=== PATIENT | female | born 1960 ===

== ENCOUNTER → 2023-12-29 09:07 | Outpatient (BNVA) | payer OTHER, SELFPAY | PROVIDERS: PCP Family Medicine; Referring Provider Family Medicine; Visit Provider Student in an Organized Health Care Education/Training Program | DX: J44.9 Chronic obstructive pulmonary disease, unspecified (principal); J96.91 Respiratory failure, unspecified with hypoxia; J96.92 Respiratory failure, unspecified with hypercapnia; G47.33 Obstructive sleep apnea (adult) (pediatric); Z87.891 Personal history of nicotine dependence | CPT/HCPCS: 99205 ==

== ENCOUNTER → 2024-03-21 00:45 | Outpatient (CLI) | payer OTHER, SELFPAY ==
--- NOTE | 2024-03-21 | DI.NM_ITS ---
APPROVED REPORT Exam: Pharmacologic Patient Location: Out-Patient Room/Bed: Stress Nurse: Kimberly Tripp RN Ordering Provider:BELGICA CHE, Contact Number: [phone] BMI: 32.91 Baseline Rhythm: Sinus Rhythm Indications: Chest pain, other forms of dyspnea, Medical History Medical History: Edema, COPD, hypothyroid, THAO, anemia, mixed anxiety and depression, prediabetes Cardiac Medications: Albuterol sulfate, aspirin, atorvastatin, prednisone, sertraline, levothyroxine trelegy Allergies: Dulera, fluticasone, lactose Cardiac Risk Factors: Prediabetes, asthma, HLD, COPD, former smoker Previous Cardiac Procedures: None Pretest Chest Pain Characteristics: None Exercise History: Indeterminate Physical Disabilities: None Lung Sounds: Rhonchi left mid to base Heart Sounds: Regular Stress Test Details Test: Pharmacologic stress was paired with low level exercise. Reason for pharmacologic stress test: physical limitation. Nuclear Acquisition: Rest Tc-99m/Stress Tc-99m 1 day Rest Isotope: Tc-99m Sestamibi. Dose: 10.0 Date: 03/21/2024 Injection Time: 0830 Stress Isotope: Tc-99m Sestamibi. Dose: 30.0 Date: 03/21/2024 Injection Time: 1115 HR Resting HR Supine: 81 bpm Max Heart Rate (APMHR): 159.473787 bpm Resting HR Standin bpm Target HR (85% APMHR): 135.068908 bpm Max HR Achieved: 111 bpm % of APMHR: 69.81 Recovery HR: 92 bpm BP Resting BP Supine: 138/72 mmHg Resting BP Standin/82 mmHg Max BP: 138/72 mmHg Recovery BP: 126/76 mmHg ECG Resting ECG: Sinus Rhythm Ectopy: None Stress ECG: Sinus Tachycardia ST Change: Nondiagnostic low heart rate Arrhythmia: None Recovery ECG: Sinus Rhythm Recovery ST Change: Nondiagnostic low heart rate Recovery Arrhythmia: None Clinical Stress Symptoms: Left flank pain 4/10 Angina Score: None Rate Pressure Product: [id number] Stress ECG Conclusion 1. Resting electrocardiogram showed poor R wave progression 2. Patient underwent testing using pharmacologic stress with regadenoson 3. Peak heart rate achieved was 70% of maximal predicted for age 4. Electrocardiographic portion of the test was nondiagnostic 5. See MPI report Stress Test Summary STAGE HR BP SpO2 Symptoms NOTES Supine 81 138/72 94% Standing 84 120/82 1 min post Lexiscan injection 111 118/68 92% 3 min post Lexiscan injection 97 138/72 97% Left flank pain 6 min post Lexiscan injection 92 126/76 94% Left flank pain resolved at end of test. Patient proceeding to imaging ambulatory in no apparent dist ress. MPI Conclusion Myocardial perfusion is normal. There is no ischemia or evidence of prior infarction Ejection fraction is 65% with normal wall motion Radiologist Interpretation Radiologist Interpretation by: Karan Sykes MD Interpretation Date/Time: 03/21/2024 16:44:44
[2024-03-21] MEDS: Regadenoson 0.4 MG/5 ML SYR IVP (10:35)
== END ==
LOC: DI 00:45
PROVIDERS: PCP Family Medicine; Visit Provider Internal Medicine
DX: R07.9 Chest pain, unspecified (principal)
CPT/HCPCS: 78452; 93016; 93018; 93017; J2785

== ENCOUNTER → 2024-04-01 10:33 | Outpatient (BNVA) | payer OTHER, SELFPAY | PROVIDERS: PCP Family Medicine; Referring Provider Family Medicine; Visit Provider Internal Medicine Critical Care Medicine | DX: J44.9 Chronic obstructive pulmonary disease, unspecified (principal); J96.91 Respiratory failure, unspecified with hypoxia; J96.92 Respiratory failure, unspecified with hypercapnia; G47.33 Obstructive sleep apnea (adult) (pediatric); F17.210 Nicotine dependence, cigarettes, uncomplicated; Z23 Encounter for immunization | CPT/HCPCS: 90471R; 90677; 99215 ==

== ENCOUNTER → 2024-07-02 12:31 | Outpatient (BNVA) | payer OTHER, SELFPAY | PROVIDERS: PCP Family Medicine; Referring Provider Family Medicine; Visit Provider Physician Assistant Surgical | DX: J44.9 Chronic obstructive pulmonary disease, unspecified (principal); F17.200 Nicotine dependence, unspecified, uncomplicated; G47.33 Obstructive sleep apnea (adult) (pediatric); J96.91 Respiratory failure, unspecified with hypoxia; J96.92 Respiratory failure, unspecified with hypercapnia; L98.9 Disorder of the skin and subcutaneous tissue, unspecified | CPT/HCPCS: 99214 ==

== ENCOUNTER → 2025-07-16 09:53 | Outpatient (BNVA) | payer MEDICARE, SELFPAY | PROVIDERS: PCP Family Medicine; Referring Provider Family Medicine; Visit Provider Physician Assistant Surgical | DX: J44.9 Chronic obstructive pulmonary disease, unspecified (principal); J96.91 Respiratory failure, unspecified with hypoxia; J96.92 Respiratory failure, unspecified with hypercapnia; G47.33 Obstructive sleep apnea (adult) (pediatric); F17.210 Nicotine dependence, cigarettes, uncomplicated | CPT/HCPCS: 99214 ==